=== PATIENT | male | born 1970 | race Two or more races ===

== ENCOUNTER 2017-04-02 13:39 | Emergency (ER) | payer BC, OTHER ==
[~2017-04-02] VITALS: Ht 167.6 cm; Wt 81.6 kg
[2017-04-02 14:11] LABS: Basophils # (auto) 0 uL; Basophils % (auto) 0.4 % (0.0-2.0); Eosinophils # (auto) 0.1 uL; Eosinophils % (auto) 1.1 % (0.0-7.0); Hemoglobin 15.9 g/dL (13.5-17.5); Lymphocytes # (auto) 1.8 uL; Mean Corpuscular Hemoglobin 30.9 pg (28.0-32.0); Mean Corpuscular Hgb Conc. 34.6 g/dL (32.0-36.0); Mean Corpuscular Volume 89.1 fL (80.0-100.0); Mean Platelet Volume 9.5 fL (7.4-10.4); Monocytes # (auto) 0.5 uL; Monocytes % (auto) 4.6 % (0.0-12.0); Neutrophils # (auto) 8.6 uL; Neutrophils % (auto) 77.9 % (37.0-80.0); Platelet Count (auto) 239 10^3/uL (140-450)
[2017-04-02 14:40] LABS: Alkaline Phosphatase 76 U/L (45-117); Anion Gap 6 (5-15); Aspartate Aminotransferase 18 U/L (15-37); Bilirubin, Total 0.6 mg/dL (0.2-1.0); Blood Urea Nitrogen 16 mg/dL (7-18); Calcium 8.6 mg/dL (8.5-10.1); Carbon Dioxide 28 mmol/L (21-32); Chloride 103 mmol/L (98-107); GFR African American 96 mL/min; GFR Non-African American 79 mL/min; Glucose 160 mg/dL (74-106); Sodium 137 mmol/L (136-145); Total Protein 7.2 g/dL (6.4-8.2)
[2017-04-02 15:54] VITALS: BP 122/77
== END 2017-04-02 16:00 | disposition left against medical advice (07) ==
LOC: ER 13:41
DX: M62.830 Muscle spasm of back (principal); Z53.21 Procedure and treatment not carried out due to patient leaving prior to being seen by health care provider
CPT/HCPCS: 36415; 80053; 84484; 85025; 93005

== ENCOUNTER 2020-05-07 19:42 | Emergency (ER) | payer BC ==
[~2020-05-07] VITALS: Ht 167.6 cm; Wt 86.2 kg
[2020-05-07 23:00] VITALS: BP 133/82
== END 2020-05-07 23:49 | disposition home or self-care (01) ==
LOC: ER 19:43
DX: S83.92XA Sprain of unspecified site of left knee, initial encounter (principal); X50.9XXA Other and unspecified overexertion or strenuous movements or postures, initial encounter; Y93.01 Activity, walking, marching and hiking; Y92.096 Garden or yard of other non-institutional residence as the place of occurrence of the external cause; Y99.8 Other external cause status
CPT/HCPCS: 29505; 73562